=== PATIENT | male | born 1950 | race Caucasian/White ===

== ENCOUNTER 2018-04-15 10:34 | Emergency (ER) | payer MEDICARE, BC ==
--- NOTE | 2018-04-15 10:52 | EDM.PDOC ---
ED HPI GENERAL MEDICAL PROBLEM - General Chief Complaint: Chest Pain Stated Complaint: CHEST PAIN Time Seen by Provider: 04/15/18 10:50 Source of Information: Reports: Patient History Limitations: Reports: Other (no old records available) - History of Present Illness INITIAL COMMENTS - FREE TEXT/NARRATIVE: 68 yo male with pHx of IHSS had surgery for this in November at [facility]. Also has a hx of prostate CA and thyroid CA. Most of his care has been at [facility]. Some care at [place], virtually none locally. Lives in [place], [place]. Presents today with a few day hx of anterior chest pain that is constant and only noticeably worse with going from a lying to a standing position. No SOB, nausea, or diaphoresis. No self tx. Onset: Gradual Onset Date: 04/12/18 Duration: Day(s):, Constant Location: Reports: Chest Quality: Reports: Dull Severity: Mild Improves with: Reports: None Worsens with: Reports: None Context: Reports: Other (unknown) Associated Symptoms: Reports: No Other Symptoms Treatments [employer]: Reports: Other (see below) (usual meds only) Chest Pain Score (Numeric/FACES): 4 - Related Data Allergies Allergy/AdvReac Type Severity Reaction Status Date / Time No Known Allergies Allergy Verified 04/15/18 11:14 Home Meds: Home Meds Aspirin [Halfprin] 81 mg PO DAILY 04/15/18 [History] Cholecalciferol (Vitamin D3) [Vitamin D3] 1,000 unit PO DAILY 04/15/18 [History] Furosemide [Lasix] 20 mg PO DAILY 04/15/18 [History] Levothyroxine 250 mcg PO ASDIRECTED 04/15/18 [History] Levothyroxine 375 mcg PO ASDIRECTED 04/15/18 [History] Metoprolol Tartrate 75 mg PO BID 04/15/18 [History] atorvaSTATin [Lipitor] 40 mg PO BEDTIME 04/15/18 [History] ED ROS GENERAL - Review of Systems Review Of Systems: See Below Constitutional: Reports: No Symptoms HEENT: Reports: No Symptoms Respiratory: Reports: No Symptoms Cardiovascular: Reports: Chest Pain Endocrine: Reports: No Symptoms GI/Abdominal: Reports: No Symptoms : Reports: No Symptoms Musculoskeletal: Reports: No Symptoms Skin: Reports: No Symptoms Neurological: Reports: No Symptoms ED EXAM, GENERAL - Physical Exam Exam: See Below Exam Limited By: No Limitations General Appearance: Alert, WD/WN, No Apparent Distress, Obese Eye Exam: Bilateral Eye: Normal Inspection Ears: Normal External Exam, Normal Canal, Hearing Grossly Normal, Normal TMs Ear Exam: Bilateral Ear: Auricle Normal, Canal Normal Nose: Normal Inspection, Normal Mucosa, No Blood Throat/Mouth: Normal Inspection, Normal Lips, Normal Oropharynx, Normal Voice, No Airway Compromise Head: Atraumatic, Normocephalic Neck: Normal Inspection, Supple Respiratory/Chest: No Respiratory Distress, Lungs Clear, Normal Breath Sounds, No Accessory Muscle Use Cardiovascular: Regular Rate, Rhythm, No Edema GI/Abdominal: Normal Bowel Sounds, Soft, Non-Tender, No Distention Back Exam: Normal Inspection. No: CVA Tenderness (R), CVA Tenderness (L) Extremities: Normal Inspection, Normal Range of Motion, Non-Tender, No Pedal Edema Neurological: Alert, Oriented, CN II-XII Intact, Normal Cognition, No Motor/ Sensory Deficits Psychiatric: Normal Affect, Normal Mood Skin Exam: Warm, Dry, Intact, Normal Color, No Rash Lymphatic: No Adenopathy EKG INTERPRETATION EKG Date: 04/15/18 Time: 10:45 Rhythm: NSR Rate (Beats/Min): 65 [place]: Normal P-Wave: Present QRS: LBBB ST-T: Depressed (I, AVL have slight ST-T depression.) QT: Normal Comparison: NA - No Prior EKG Course - Vital Signs Text/Narrative:: No change with NTG SL x 3 EKG's from 12/15 [facility] shows that the LBBB seen today is new since November, normal Trop today suggests the LBBB is not brand new. Last Recorded V/S: Last Vital Signs Temp 36.8 C 04/15/18 10:34 Pulse 60 04/15/18 10:34 Resp 24 H 04/15/18 10:34 BP 131/89 04/15/18 11:40 Pulse Ox 96 04/15/18 10:34 - Orders/Labs/Meds Orders: Active Orders 24 hr Category Date Time Status Cardiac Monitoring [RC] .As Directed Care 04/15/18 10:49 Active EKG Documentation Completion [RC] ASDIRECTED Care 04/15/18 10:49 Active Sodium Chloride 0.9% [Saline Flush] Med 04/15/18 11:03 Active 10 ml FLUSH ASDIRECTED PRN Saline Lock Insert [OM.PC] Routine Oth 04/15/18 11:03 Ordered EKG 12 Lead [EK] Routine Ther 04/15/18 10:49 Ordered Medication Orders Sodium Chloride (Saline Flush) 10 ml FLUSH ASDIRECTED PRN PRN Reason: Keep Vein Open Last Admin: 04/15/18 11:31 Dose: 10 ml Labs: Laboratory Tests 04/15/18 04/15/18 Range/Units 11:10 11:10 WBC 7.7 (4.5-11.0) K/uL RBC 5.14 (4.30-5.90) M/uL Hgb 15.1 H (12.0-15.0) g/dL Hct 45.0 (40.0-54.0) % MCV 88 (80-98) fL MCH 29 (27-31) pg MCHC 34 (32-36) % Plt Count 267 (150-400) K/uL Sodium 140 (140-148) mmol/L Potassium 4.1 (3.6-5.2) mmol/L Chloride 104 (100-108) mmol/L Carbon Dioxide 31 (21-32) mmol/L Anion Gap 5.4 (5.0-14.0) mmol/L BUN 11 (7-18) mg/dL Creatinine 0.9 (0.8-1.3) mg/dL Est Cr Clr Drug Dosing 83.36 mL/min Estimated GFR (MDRD) > 60 (>60) Glucose 116 H (74-106) mg/dL Calcium 8.7 (8.5-10.1) mg/dL Troponin I < 0.017 (0.000-0.056) ng/mL Meds: Medications Generic Name Dose Route Start Last Admin Trade Name Freq PRN Reason Stop Dose Admin Sodium Chloride 10 ml 04/15/18 11:03 04/15/18 11:31 Saline Flush FLUSH 10 ml ASDIRECTED PRN Administration Keep Vein Open Discontinued Medications Generic Name Dose Route Start Last Admin Trade Name Freq PRN Reason Stop Dose Admin Nitroglycerin 0.4 mg 04/15/18 11:03 04/15/18 11:40 Nitrostat SL 0.4 mg Q5M PRN Administration Chest Pain Departure - Departure Time of Disposition: 12:16 Disposition: Home, Self-Care 01 Condition: Fair Clinical Impression: Atypical chest pain, Left bundle branch block HTN (hypertension) Qualifiers: Hypertension type: unspecified Qualified Code(s): I10 - Essential (primary) hypertension Obesity Qualifiers: Obesity type: unspecified obesity type Obesity classification: adult class 3 ( BMI >= 40) Serious obesity comorbidity presence: with serious comorbidity Body mass index: unspecified BMI Qualified Code(s): E66.9 - Obesity, unspecified Referrals: PCP,None [Primary Care Provider] - Forms: ED Department Discharge Additional Instructions: Continue your current meds. [facility] for [facility] recheck and to discuss possible increase in your BP meds. Take acetaminophen as needed for pain relief. Return if worse. - My Orders Last 24 Hours: My Active Orders 04/15/18 10:49 Cardiac Monitoring [RC] .As Directed EKG Documentation Completion [RC] ASDIRECTED EKG 12 Lead [EK] Routine 04/15/18 11:03 Sodium Chloride 0.9% [Saline Flush] 10 ml FLUSH ASDIRECTED PRN Saline Lock Insert [OM.PC] Routine - Assessment/Plan Last 24 Hours: My Active Orders 04/15/18 10:49 Cardiac Monitoring [RC] .As Directed EKG Documentation Completion [RC] ASDIRECTED EKG 12 Lead [EK] Routine 04/15/18 11:03 Sodium Chloride 0.9% [Saline Flush] 10 ml FLUSH ASDIRECTED PRN Saline Lock Insert [OM.PC] Routine
[2018-04-15] MEDS ORDERED: Sodium Chloride 0.9% 10 ML Syringe FLUSH PRN (11:03)
[2018-04-15] MEDS: Nitroglycerin 0.4 MG Tab.SL SL PRN ×3 (11:28→11:40)
== END 2018-04-15 12:36 | disposition home or self-care (01) ==
LOC: JP.ED 10:34
DX: I44.7 Left bundle-branch block, unspecified (principal); I10 Essential (primary) hypertension; E66.9 Obesity, unspecified; Z68.41 Body mass index [BMI] 40.0-44.9, adult; Z79.82 Long term (current) use of aspirin; Z79.899 Other long term (current) drug therapy
CPT/HCPCS: 36415; 80048; 84484; 85027; 93005; 99285; A9270; J7050

== ENCOUNTER 2025-05-14 06:34 | Day surgery (SDC) | payer MEDICARE, BC ==
[2025-05-14] MEDS ORDERED: Propofol 200 MG/20 ML SDV ONE ×2 (07:10→07:42)
[2025-05-14] MEDS ORDERED: fentaNYL 100 MCG/2 ML SDV ONE (07:10)
[2025-05-14] MEDS: Lactated Ringers 1,000 ML IV SCH (07:11)
== END 2025-05-14 09:15 | disposition home or self-care (01) ==
LOC: JP.SDS 06:34
PROVIDERS: ATTEND Family Medicine
DX: Z12.11 Encounter for screening for malignant neoplasm of colon (principal); D12.3 Benign neoplasm of transverse colon; K62.1 Rectal polyp; R19.5 Other fecal abnormalities; K64.8 Other hemorrhoids; I10 Essential (primary) hypertension; E66.9 Obesity, unspecified
CPT/HCPCS: 00811; 45380; 88305; J2704; J3010; J7120

== ENCOUNTER 2025-05-20 20:01 | Emergency (ER) | payer MEDICARE, BC ==
[2025-05-20] MEDS: Bacitracin Oint 1 GM U/D Packet TOP ONE (21:21)
== END 2025-05-20 21:54 | disposition home or self-care (01) ==
LOC: JP.ED 20:01
DX: T25.222A Burn of second degree of left foot, initial encounter (principal); I10 Essential (primary) hypertension; E78.00 Pure hypercholesterolemia, unspecified; E66.9 Obesity, unspecified; Z68.35 Body mass index [BMI] 35.0-35.9, adult; Z79.82 Long term (current) use of aspirin; Z79.890 Hormone replacement therapy; Z79.899 Other long term (current) drug therapy; X58.XXXA Exposure to other specified factors, initial encounter
CPT/HCPCS: 36415; 85379; 99283